=== PATIENT | female | born 1995 | race Caucasian/White ===

== ENCOUNTER 2018-06-06 11:47 | Emergency (ER) | payer OTHER ==
[~2018-06-06] VITALS: Ht 163.8 cm; Wt 112.0 kg
[~2018-06-06 11:47] MED LIST: AMPH12.52 PO; DIPH25CA83 PO; NITR100C6 PO; ONDA4TAB6 PO
[2018-06-06 11:52] VITALS: BP 133/90
[2018-06-06] MEDS ORDERED: penicillin V potassium 500mg tablet PO ONE (12:20)
[2018-06-06] MEDS ORDERED: PENI500T2 PO (12:21)
== END 2018-06-06 12:36 | disposition home or self-care (01) ==
LOC: ER 11:47
DX: J02.9 Acute pharyngitis, unspecified (principal); R51 Headache; Z91.02 Food additives allergy status
CPT/HCPCS: 99283

== ENCOUNTER 2018-10-18 19:28 | Emergency (ER) | payer OTHER ==
[~2018-10-18] VITALS: Ht 162.6 cm; Wt 112.7 kg
[2018-10-18 19:34] VITALS: BP 114/61
== END 2018-10-18 20:40 | disposition home or self-care (01) ==
LOC: ER 19:29
DX: R21 Rash and other nonspecific skin eruption (principal); L29.9 Pruritus, unspecified; L98.9 Disorder of the skin and subcutaneous tissue, unspecified; L53.8 Other specified erythematous conditions; Z91.018 Allergy to other foods; Z79.899 Other long term (current) drug therapy; Z98.890 Other specified postprocedural states
CPT/HCPCS: 99281

== ENCOUNTER 2019-09-06 12:13 | Emergency (ER) | payer MEDICAID, OTHER ==
[~2019-09-06] VITALS: Ht 162.6 cm; Wt 110.0 kg
[2019-09-06 12:14] VITALS: BP 130/77
[2019-09-06] MEDS ORDERED: ALBU8HFA PO (13:37)
== END 2019-09-06 13:41 | disposition home or self-care (01) ==
LOC: ER 12:13
DX: J06.9 Acute upper respiratory infection, unspecified (principal); Z98.890 Other specified postprocedural states; Z91.018 Allergy to other foods; Z79.899 Other long term (current) drug therapy
CPT/HCPCS: 99283

== ENCOUNTER 2020-04-17 10:23 | Emergency (ER) | payer BC, MEDICAID ==
[~2020-04-17] VITALS: Ht 162.6 cm; Wt 117.2 kg
[2020-04-17] MEDS ORDERED: CEPH250T PO (11:10)
[2020-04-17] MEDS ORDERED: cephalexin 500mg capsule PO ONE (11:20)
[2020-04-17 11:38] VITALS: BP 125/67
== END 2020-04-17 11:40 | disposition home or self-care (01) ==
LOC: ER 10:24
DX: N61.0 Mastitis without abscess (principal); Z98.890 Other specified postprocedural states; Z91.018 Allergy to other foods; Z79.2 Long term (current) use of antibiotics; Z79.899 Other long term (current) drug therapy
CPT/HCPCS: 99283

== ENCOUNTER 2020-11-09 20:01 | Emergency (ER) | payer OTHER ==
[~2020-11-09] VITALS: Ht 162.6 cm; Wt 108.9 kg
[~2020-11-09 20:01] MED LIST changes: +CEPH250T PO
[2020-11-09 20:24] VITALS: BP 133/70
== END 2020-11-09 21:56 | disposition home or self-care (01) ==
LOC: ER 20:01
DX: M25.562 Pain in left knee (principal); R60.0 Localized edema; Z79.2 Long term (current) use of antibiotics; Z79.899 Other long term (current) drug therapy; Z91.018 Allergy to other foods
CPT/HCPCS: 29105; 29505; 29515; 73564; 99283

== ENCOUNTER 2021-08-31 05:37 | Emergency (ER) | payer BC, OTHER ==
[~2021-08-31] VITALS: Ht 162.6 cm; Wt 105.5 kg
[~2021-08-31 05:37] MED LIST changes: -CEPH250T PO
[2021-08-31] MEDS ORDERED: methylPREDNISolone sod succ 125mg/2ml vial IV ONE (05:55)
[2021-08-31] MEDS ORDERED: FAMO20TA47 PO (06:39)
[2021-08-31] MEDS ORDERED: DIPH25CA83 PO (06:39)
[2021-08-31] MEDS ORDERED: PRED20TA PO (06:39)
[2021-08-31] MEDS ORDERED: predniSONE 20 mg tablet PO ONE (06:40)
[2021-08-31] MEDS ORDERED: famotidine 20mg tablet PO ONE (06:40)
--- NOTE | 2021-08-31 06:50 | NUR ---
Pt states she feels much better. no swelling noted in mouth. vital signs updated. pt awaiting discharge
[2021-08-31 07:25] VITALS: BP 130/77
--- NOTE | 2021-08-31 07:28 | NUR ---
Pt d/c prior to medications given. Pt stable, no apparent distress at this time.
== END 2021-08-31 07:26 | disposition home or self-care (01) ==
LOC: ER 05:38
DX: T78.1XXA Other adverse food reactions, not elsewhere classified, initial encounter (principal); R06.2 Wheezing; R05.9 Cough, unspecified; R06.02 Shortness of breath; Z98.891 History of uterine scar from previous surgery; Z91.018 Allergy to other foods; Z79.899 Other long term (current) drug therapy; X58.XXXA Exposure to other specified factors, initial encounter
CPT/HCPCS: 96374; 99283; J2930

== ENCOUNTER 2021-11-21 03:13 | Outpatient (CLI) | payer OTHER ==
[~2021-11-21 03:13] MED LIST changes: +FAMO20TA47 PO
== END 2021-11-21 23:59 | disposition home or self-care (01) ==
LOC: ER 03:13
DX: Z20.822 Contact with and (suspected) exposure to COVID-19 (principal)
CPT/HCPCS: 87635; C9803

== ENCOUNTER 2022-01-09 06:19 | Emergency (ER) | payer OTHER ==
[~2022-01-09] VITALS: Ht 162.6 cm; Wt 103.2 kg
[2022-01-09 06:24] VITALS: BP 129/74
[2022-01-09] MEDS ORDERED: ibuprofen tablet 400 MG TABLET PO ONE (07:40)
[2022-01-09] MEDS ORDERED: IBUP-1985 PO (07:41)
== END 2022-01-09 08:00 | disposition home or self-care (01) ==
LOC: ER 06:20
DX: T14.90XA Injury, unspecified, initial encounter (principal); Z91.018 Allergy to other foods; Z98.890 Other specified postprocedural states; X58.XXXA Exposure to other specified factors, initial encounter; Y93.89 Activity, other specified; Y92.89 Other specified places as the place of occurrence of the external cause; Y99.8 Other external cause status
CPT/HCPCS: 29125; 73130; 99283; L3908

== ENCOUNTER 2022-11-25 19:53 | Emergency (ER) | payer BC, MEDICAID ==
[~2022-11-25] VITALS: Ht 162.6 cm; Wt 99.1 kg
[~2022-11-25 19:53] MED LIST changes: +IBUP-1985 PO
[2022-11-25 21:09] LABS: BASOPHILS % (AUTO) 0.5 % (0-1); EOSINOPHILS # (AUTO) 0.1 X10'3 (0-0.9); EOSINOPHILS % (AUTO) 0.7 % (0-6); HEMOGLOBIN 12.8 g/dl (12.0-16.0); LYMPHOCYTES # (AUTO) 2.6 X10'3 (1.1-4.8); LYMPHOCYTES % (AUTO) 27.4 % (21-51); MEAN CORPUSCULAR HEMOGLOBIN 28.6 PG (27.0-31.0); MEAN CORPUSCULAR HGB CONC 32.7 g/dL (33.0-36.5); MEAN CORPUSCULAR VOLUME 87.4 FL (78-98); MEAN PLATELET VOLUME 7.4 FL (7.4-10.4); MONOCYTES # (AUTO) 1.1 X10'3 (0-0.9); MONOCYTES % (AUTO) 11.2 % (2-12); NEUTROPHILS # (AUTO) 5.8 X10'3 (1.8-7.7); NEUTROPHILS % (AUTO) 60.2 % (42-75); PLATELET COUNT 328 X10'3 (140-440); RED BLOOD COUNT 4.47 X10'6 (4.20-5.60); RED CELL DISTRIBUTION WIDTH 13.5 % (11.5-14.5); WHITE BLOOD COUNT 9.7 X10'3 (4.5-11.0)
[2022-11-25 21:31] LABS: ALANINE AMINOTRANSFERASE 28 U/L (12-78); ALBUMIN 3.5 G/DL (3.4-5.0); ALBUMIN/GLOBULIN RATIO 0.9 (1.1-1.5); ALKALINE PHOSPHATASE 61 IU/L (46-116); ANION GAP 7 (8-16); ASPARTATE AMINO TRANSFERASE 17 U/L (10-37); BILIRUBIN,TOTAL 0.1 MG/DL (0.1-1.0); BLOOD UREA NITROGEN 15 MG/DL (7-18); BUN/CREATININE RATIO 19.5 (10.0-20.0); CHLORIDE 105 MMOL/L (99-107); CREATININE 0.77 MG/DL (0.40-0.90); GLUCOSE 88 MG/DL (70-104); SODIUM 140 MMOL/L (135-145); TOTAL CARBON DIOXIDE 27.7 MMOL/L (24-32); TOTAL PROTEIN 7.3 G/DL (6.4-8.2); eGFR 89 ML/MIN
--- NOTE | 2022-11-25 23:28 | NUR ---
Dr Oleary aware of 2 negative troponins, stated third trop can be cancelled, so done.
[2022-11-26 01:18] VITALS: BP 132/82
== END 2022-11-26 01:19 | disposition home or self-care (01) ==
LOC: ER 19:54
DX: R42 Dizziness and giddiness (principal)
CPT/HCPCS: 36415; 71045; 80053; 83880; 84484; 85025; 93005; 99285

== ENCOUNTER 2022-12-27 15:53 | Inpatient (IN) | payer BC, MEDICAID ==
[~2022-12-27] VITALS: Ht 162.6 cm; Wt 98.0 kg
--- NOTE | 2022-12-27 17:37 | NUR ---
AMINAH RN ATTEMPTING IV AT THIS TIME. PT IS HARD STICK.
[2022-12-27 18:08] LABS: BASOPHILS % (AUTO) 0.2 % (0-1); EOSINOPHILS % (AUTO) 0.1 % (0-6); HEMATOCRIT 39.5 % (35.0-45.0); HEMOGLOBIN 12.8 g/dl (12.0-16.0); LYMPHOCYTES # (AUTO) 1.6 X10'3 (1.1-4.8); LYMPHOCYTES % (AUTO) 10.2 % (21-51); MEAN CORPUSCULAR HEMOGLOBIN 27.8 PG (27.0-31.0); MEAN CORPUSCULAR HGB CONC 32.3 g/dL (33.0-36.5); MEAN PLATELET VOLUME 7.6 FL (7.4-10.4); MONOCYTES # (AUTO) 0.6 X10'3 (0-0.9); MONOCYTES % (AUTO) 3.8 % (2-12); NEUTROPHILS % (AUTO) 85.7 % (42-75); PLATELET COUNT 348 X10'3 (140-440); RED BLOOD COUNT 4.59 X10'6 (4.20-5.60); RED CELL DISTRIBUTION WIDTH 12.7 % (11.5-14.5); WHITE BLOOD COUNT 15.2 X10'3 (4.5-11.0)
[2022-12-27 18:21] LABS: GLUCOSE 91 MG/DL (70-104)
[2022-12-27 18:22] LABS: ALANINE AMINOTRANSFERASE 18 U/L (12-78); ALBUMIN 3.8 G/DL (3.4-5.0); ALKALINE PHOSPHATASE 55 IU/L (46-116); ANION GAP 10 (8-16); ASPARTATE AMINO TRANSFERASE 17 U/L (10-37); BILIRUBIN,TOTAL 0.2 MG/DL (0.1-1.0); BLOOD UREA NITROGEN 16 MG/DL (7-18); BUN/CREATININE RATIO 21.3 (10.0-20.0); CHLORIDE 104 MMOL/L (99-107); CREATININE 0.75 MG/DL (0.40-0.90); POTASSIUM 3.7 MMOL/L (3.5-5.1); SODIUM 140 MMOL/L (135-145); TOTAL CARBON DIOXIDE 25.9 MMOL/L (24-32); TOTAL PROTEIN 7.7 G/DL (6.4-8.2); eGFR > 90 ML/MIN
--- NOTE | 2022-12-27 18:55 | NUR ---
Patient resting comfortably on [place], Dr. Shaikh is at bedside.
[2022-12-27] MEDS ORDERED: magnesium hydroxide 30ml (MOM) UD suspension PO PRN (19:35)
[2022-12-27] MEDS ORDERED: potassium Cl 20 mEq SR tablet PO PRN ×2 (19:35)
[2022-12-27] MEDS ORDERED: magnesium 4gm in 100ml NS 100 ML IV PRN (19:35)
[2022-12-27] MEDS ORDERED: potassium Cl 40MEQ/1/2NS 520ml 520 ML IV PRN (19:35)
[2022-12-27] MEDS ORDERED: mag hydrox/Alum hydrox/simeth 30ml oral suspension PO PRN (19:35)
[2022-12-27] MEDS ORDERED: magnesium Cl slow-release 64mg tablet PO PRN (19:35)
[2022-12-27] MEDS ORDERED: ondansetron/PF 4mg/2ml inj IV PRN (19:35)
[2022-12-27] MEDS ORDERED: acetaminophen 325mg tablet PO PRN (19:35)
[2022-12-27] MEDS ORDERED: magnesium 2GM in 50ml NS 50 ML IV PRN (19:35)
[2022-12-27] MEDS ORDERED: PERFLUTREN PROTEIN-A MICROSPHR (Optison) 0.22 MG/ML 3ML VIAL IV ONE (19:35)
[2022-12-27] MEDS: docusate sod 100mg capsule PO SCH (20:00)
[2022-12-27] MEDS: K and/or MAG REPLACEMENT MC SCH (20:00)
[2022-12-27] MEDS: heparin, porcine 5000 units/ml vial SQ SCH (20:00)
[2022-12-27] MEDS ORDERED: NO HOME MEDS (23:59)
[2022-12-28] MEDS: docusate sod 100mg capsule PO SCH ×2 (08:00→20:00)
[2022-12-28] MEDS: K and/or MAG REPLACEMENT MC SCH ×2 (08:00→20:00)
[2022-12-28] MEDS: heparin, porcine 5000 units/ml vial SQ SCH ×2 (08:00→20:00)
[2022-12-28 08:07] LABS: BASOPHILS # (AUTO) 0.1 X10'3 (0-0.2); BASOPHILS % (AUTO) 0.6 % (0-1); EOSINOPHILS # (AUTO) 0.1 X10'3 (0-0.9); EOSINOPHILS % (AUTO) 0.6 % (0-6); HEMATOCRIT 36.8 % (35.0-45.0); HEMOGLOBIN 12.1 g/dl (12.0-16.0); LYMPHOCYTES # (AUTO) 2.3 X10'3 (1.1-4.8); LYMPHOCYTES % (AUTO) 23.1 % (21-51); MEAN CORPUSCULAR HEMOGLOBIN 28.7 PG (27.0-31.0); MEAN CORPUSCULAR HGB CONC 32.9 g/dL (33.0-36.5); MEAN CORPUSCULAR VOLUME 87.2 FL (78-98); MEAN PLATELET VOLUME 7.8 FL (7.4-10.4); MONOCYTES # (AUTO) 0.8 X10'3 (0-0.9); MONOCYTES % (AUTO) 8.4 % (2-12); NEUTROPHILS # (AUTO) 6.8 X10'3 (1.8-7.7); NEUTROPHILS % (AUTO) 67.3 % (42-75); PLATELET COUNT 334 X10'3 (140-440); RED BLOOD COUNT 4.22 X10'6 (4.20-5.60); RED CELL DISTRIBUTION WIDTH 13.1 % (11.5-14.5)
[2022-12-28 08:24] LABS: ALANINE AMINOTRANSFERASE 15 U/L (12-78); ALBUMIN 3.1 G/DL (3.4-5.0); ALBUMIN/GLOBULIN RATIO 0.9 (1.1-1.5); ALKALINE PHOSPHATASE 44 IU/L (46-116); ANION GAP 10 (8-16); ASPARTATE AMINO TRANSFERASE 16 U/L (10-37); BILIRUBIN,TOTAL 0.1 MG/DL (0.1-1.0); BLOOD UREA NITROGEN 16 MG/DL (7-18); BUN/CREATININE RATIO 24.2 (10.0-20.0); CALCIUM 8.5 MG/DL (8.5-10.1); CHLORIDE 107 MMOL/L (99-107); CREATININE 0.66 MG/DL (0.40-0.90); GLUCOSE 91 MG/DL (70-104); MAGNESIUM 2.1 MG/DL (1.5-2.4); POTASSIUM 4.2 MMOL/L (3.5-5.1); SODIUM 141 MMOL/L (135-145); TOTAL CARBON DIOXIDE 23.7 MMOL/L (24-32); TOTAL PROTEIN 6.7 G/DL (6.4-8.2); eGFR > 90 ML/MIN
--- NOTE | 2022-12-28 08:35 | NUR ---
PT BACK FROM MRI.
--- NOTE | 2022-12-28 09:14 | NUR ---
BELT OPERATOR AT BEDSIDE.
[2022-12-28 10:15] LABS: CLARITY,URINE CLOUDY (Clear); COLOR,URINE YELLOW (Yellow); GLUCOSE, URINE NEGATIVE (Neg); KETONES,URINE NEGATIVE (Neg); LEUKOCYTE ESTERASE ,URINE NEGATIVE (Neg); NITRITES, URINE NEGATIVE (Neg); OCCULT BLOOD,URINE NEGATIVE (Neg); PROTEIN,URINE NEGATIVE (Neg); UROBILINOGEN,URINE 0.2 E.U/dL (0.2-1.0)
[2022-12-28 10:29] LABS: UA COLLECTION TYPE CLN CATCH MIDSTREAM
[2022-12-28 10:30] LABS: BACTERIA,URINE 2+ /HPF (Neg); RBC,URINE 0-2 /HPF (0-2); SQUAMOUS EPITHELIAL CELL,UR MANY /LPF (FEW); WBC,URINE 0-4 /HPF (0-4)
[2022-12-28 10:40] LABS: URINE AMPHETAMINE SCREEN NEGATIVE (Neg); URINE BARBITUATE SCREEN NEGATIVE (Neg); URINE BENZODIAZEPINES SCREEN NEGATIVE (Neg); URINE CANNABINOID SCREEN NEGATIVE (Neg); URINE COCAINE SCREEN NEGATIVE (Neg); URINE METHADONE SCREEN NEGATIVE (Neg); URINE OPIATE SCREEN NEGATIVE (Neg); URINE PHENCYCLIDINE SCREEN NEGATIVE (Neg)
--- NOTE | 2022-12-28 10:40 | NUR ---
ordered urine test as per dr dias's e orders under nursing orders " collect urine for ".
[2022-12-28 12:35] LABS: URINE HCG NEGATIVE (NEG)
[2022-12-28] MEDS: normal saline 1000ml 1,000 ML IV SCH ×2 (12:51→22:28)
[2022-12-28] MEDS ORDERED: iohexol 350MG/ML 100ml bottle IV ONE (12:56)
[2022-12-28 14:09] LABS: HEMOGLOBIN A1C 5.4 % (4.5-6.2)
[2022-12-28 14:13] LABS: CHOL/HDL RATIO 2.5 (0.00-4.99); CHOLESTEROL 130 MG/DL (0-200); HDL CHOLESTEROL 51 MG/DL (35-60); LDL CHOLESTEROL 69 MG/DL (50-100); TRIGLYCERIDES 28 MG/DL (20-135)
--- NOTE | 2022-12-28 17:18 | NUR ---
attempt to call report ,primary rn is busy passing med and will call the typewriter ribbon winder back .
--- NOTE | 2022-12-28 18:17 | NUR ---
offered patient her iv fluids per md orders, patient refused and told me that she is drinking enough and does not need the iv fluids, pt oral temp 99 and I offered her an IS and explained how the IS works she refused the IS, continue to educate and monitor patient
--- NOTE | 2022-12-28 18:29 | NUR ---
gave report rishabh mane
--- NOTE | 2022-12-28 18:30 | NUR ---
Patient in room ORTHO 4012. I have received report from Nena ARSHAD and had the opportunity to ask questions and assume patient care.
--- NOTE | 2022-12-28 20:00 | NUR ---
Noticed that patient was not hooked up to fluids. Went to reattach and pt stated "no, I dont want that as it will keep beeping every 10 minutes". I offered to start a new PIV in her hand instead of thr anti-cubital area and pt stated " no thanks, it took them 5 times down in the Er, and I have been drinking plenty. this is my 5 th pitcher of water I have had since being here in the ER". Advised patient that it would be easier to start an IV now as not so dehydrated, but patient stated "no, besides, I don't like needles". Patient promised to drink water this shift. Patient also declined colace stating "not needed", and also refused the heparin shot despite being educated on the reasons for it.
[2022-12-28 22:00] VITALS: BP_SYST 115; BP_SYST 125; BP_SYST 139; BP_DIAS 64; BP_DIAS 71; BP_DIAS 79
[2022-12-29 02:00] VITALS: BP 118/62
--- NOTE | 2022-12-29 05:30 | NUR ---
Went in room to dart patient , but patient sleeping soundly.
[2022-12-29 06:00] VITALS: BP 121/59
--- NOTE | 2022-12-29 06:40 | NUR ---
Problems reprioritized. Patient report given, questions answered & plan of care reviewed with Christina RN and Elizabeth Merrill.
[2022-12-29 06:44] LABS: BASOPHILS % (AUTO) 0.3 % (0-1); EOSINOPHILS # (AUTO) 0.1 X10'3 (0-0.9); HEMOGLOBIN 12.2 g/dl (12.0-16.0); LYMPHOCYTES # (AUTO) 2.4 X10'3 (1.1-4.8); LYMPHOCYTES % (AUTO) 28.6 % (21-51); MEAN CORPUSCULAR HEMOGLOBIN 28.3 PG (27.0-31.0); MEAN CORPUSCULAR HGB CONC 32.9 g/dL (33.0-36.5); MEAN CORPUSCULAR VOLUME 85.9 FL (78-98); MEAN PLATELET VOLUME 7.4 FL (7.4-10.4); MONOCYTES # (AUTO) 0.8 X10'3 (0-0.9); MONOCYTES % (AUTO) 9.2 % (2-12); NEUTROPHILS # (AUTO) 5.2 X10'3 (1.8-7.7); NEUTROPHILS % (AUTO) 60.9 % (42-75); PLATELET COUNT 345 X10'3 (140-440); RED BLOOD COUNT 4.31 X10'6 (4.20-5.60); RED CELL DISTRIBUTION WIDTH 12.7 % (11.5-14.5); WHITE BLOOD COUNT 8.5 X10'3 (4.5-11.0)
--- NOTE | 2022-12-29 06:52 | NUR ---
Patient in room ORTHO 4012. I have received report from Quiana and had the opportunity to ask questions and assume patient care.
[2022-12-29 06:56] LABS: ALANINE AMINOTRANSFERASE 15 U/L (12-78); ALBUMIN 3.2 G/DL (3.4-5.0); ALBUMIN/GLOBULIN RATIO 0.9 (1.1-1.5); ALKALINE PHOSPHATASE 45 IU/L (46-116); ANION GAP 7 (8-16); ASPARTATE AMINO TRANSFERASE 15 U/L (10-37); BILIRUBIN,TOTAL 0.2 MG/DL (0.1-1.0); BLOOD UREA NITROGEN 20 MG/DL (7-18); CALCIUM 8.5 MG/DL (8.5-10.1); CHLORIDE 105 MMOL/L (99-107); CREATININE 0.69 MG/DL (0.40-0.90); GLUCOSE 91 MG/DL (70-104); MAGNESIUM 1.8 MG/DL (1.5-2.4); POTASSIUM 4.1 MMOL/L (3.5-5.1); SODIUM 138 MMOL/L (135-145); TOTAL PROTEIN 6.8 G/DL (6.4-8.2); eGFR > 90 ML/MIN
[2022-12-29] MEDS: K and/or MAG REPLACEMENT MC SCH (07:44)
[2022-12-29 08:00] VITALS: BP_SYST 115; BP_SYST 116; BP_DIAS 59; BP_DIAS 75
[2022-12-29] MEDS: heparin, porcine 5000 units/ml vial SQ SCH (08:00)
[2022-12-29] MEDS: docusate sod 100mg capsule PO SCH (08:00)
[2022-12-29] MEDS: normal saline 1000ml 1,000 ML IV SCH (08:45)
[2022-12-29 10:00] VITALS: BP 117/66
--- NOTE | 2022-12-29 11:51 | NUR ---
Orientee documentation: I have reviewed and agree with all interventions, assessments performed and documented by Dannielle ARSHAD
--- NOTE | 2022-12-29 12:51 | NUR ---
Reviewed discharge and follow up instructions with patient and family at bedside. Patient verbalized understanding. Patient is alert, oriented and does not have any complaints at this time. Patient showered, dressed herself and walked downstairs accompanied by her friends/family.
== END 2022-12-29 13:20 | disposition home or self-care (01) | DRG 312 ==
LOC: EEVIPCON 15:53 → ER 15:53 → EEVIPCON 19:32 → ED HOLD 19:32 → ORTHO 4S 12-28 17:49
PROVIDERS: ADMIT Internal Medicine; ATTEND Family Medicine
PROC: 4A00X4Z Measurement of Central Nervous Electrical Activity, External Approach (ICD-10-PCS; principal; 2022-12-28)
PROC: B3251ZZ Computerized Tomography (CT Scan) of Bilateral Common Carotid Arteries using Low Osmolar Contrast (ICD-10-PCS; 2022-12-28)
PROC: B32G1ZZ Computerized Tomography (CT Scan) of Bilateral Vertebral Arteries using Low Osmolar Contrast (ICD-10-PCS; 2022-12-28)
PROC: B32R1ZZ Computerized Tomography (CT Scan) of Intracranial Arteries using Low Osmolar Contrast (ICD-10-PCS; 2022-12-28)
PROC: B3281ZZ Computerized Tomography (CT Scan) of Bilateral Internal Carotid Arteries using Low Osmolar Contrast (ICD-10-PCS; 2022-12-28)
DX: R55 Syncope and collapse (principal); Z98.891 History of uterine scar from previous surgery; Z88.8 Allergy status to other drugs, medicaments and biological substances; Z91.018 Allergy to other foods; Z79.899 Other long term (current) drug therapy
CPT/HCPCS: 36415; 70450; 70496; 70498; 70551; 71045; 80053; 80061; 80305; 81001; 81025; 83036; 83735; 83880; 84145; 84443; 85025; 87081; 93306; 95816; 99285; G0378; J7030; Q9967

== ENCOUNTER 2023-05-05 14:09 | Emergency (ER) | payer BC, MEDICAID ==
[~2023-05-05] VITALS: Ht 162.6 cm; Wt 104.5 kg
[2023-05-05 14:17] VITALS: BP 126/82; PULSE 89; TEMP 99; O2SAT 98
[2023-05-05 14:29] VITALS: RESP 18
--- NOTE | 2023-05-05 16:25 | NUR ---
EDI PROGRAMMER ANALYST GENERAL ASSESSMENT REVIEWED BY CHG RN AFTER PT WAS DC. PROVIDER EVALUATED, TX AND DC PT.
== END 2023-05-05 15:00 | disposition home or self-care (01) ==
LOC: ER 14:10
DX: S93.401A Sprain of unspecified ligament of right ankle, initial encounter (principal); Z91.018 Allergy to other foods; Z98.890 Other specified postprocedural states; X58.XXXA Exposure to other specified factors, initial encounter; Y93.89 Activity, other specified; Y92.89 Other specified places as the place of occurrence of the external cause; Y99.8 Other external cause status
CPT/HCPCS: 29515; 73610; 99284

== ENCOUNTER 2023-09-03 15:42 | Emergency (ER) | payer BC, MEDICAID ==
[~2023-09-03] VITALS: Ht 162.6 cm; Wt 117.1 kg
[2023-09-03 15:57] VITALS: BP 138/86; TEMP 98
[2023-09-03 16:42] LABS: BASOPHILS % (AUTO) 0.5 % (0-1); EOSINOPHILS # (AUTO) 0.1 X10'3 (0-0.9); EOSINOPHILS % (AUTO) 1.3 % (0-6); HEMATOCRIT 41.5 % (35.0-45.0); HEMOGLOBIN 13.7 g/dl (12.0-16.0); LYMPHOCYTES # (AUTO) 2.3 X10'3 (1.1-4.8); LYMPHOCYTES % (AUTO) 23.6 % (21-51); MEAN CORPUSCULAR HEMOGLOBIN 28.3 PG (27.0-31.0); MEAN CORPUSCULAR VOLUME 85.8 FL (78-98); MEAN PLATELET VOLUME 7.2 FL (7.4-10.4); MONOCYTES # (AUTO) 0.8 X10'3 (0-0.9); MONOCYTES % (AUTO) 8.6 % (2-12); NEUTROPHILS # (AUTO) 6.3 X10'3 (1.8-7.7); PLATELET COUNT 389 X10'3 (140-440); RED BLOOD COUNT 4.84 X10'6 (4.20-5.60); RED CELL DISTRIBUTION WIDTH 13.2 % (11.5-14.5); WHITE BLOOD COUNT 9.6 X10'3 (4.5-11.0)
[2023-09-03 17:03] LABS: ALBUMIN 3.6 G/DL (3.4-5.0); ANION GAP 8 (8-16); BLOOD UREA NITROGEN 14 MG/DL (7-18); BUN/CREATININE RATIO 17.1 (10.0-20.0); CALCIUM 8.8 MG/DL (8.5-10.1); CHLORIDE 107 MMOL/L (99-107); CREATININE 0.82 MG/DL (0.40-0.90); GLUCOSE 78 MG/DL (70-104); POTASSIUM 4.1 MMOL/L (3.5-5.1); PRO BRAIN NATRIURETIC PEPTIDE 42 PG/ML (0-125); SODIUM 142 MMOL/L (135-145); TOTAL CARBON DIOXIDE 27.2 MMOL/L (24-32); eCRCL 87 ML/MIN; eGFR 82 ML/MIN
[2023-09-03 20:31] VITALS: PULSE 68; RESP 16; O2SAT 98
== END 2023-09-03 20:33 | disposition home or self-care (01) ==
LOC: ER 15:43
DX: R53.1 Weakness (principal); Z98.890 Other specified postprocedural states; Z72.89 Other problems related to lifestyle
CPT/HCPCS: 36415; 71045; 80048; 83880; 85025; 93005; 99285

== ENCOUNTER 2023-11-25 09:09 | Emergency (ER) | payer BC, MEDICAID ==
[~2023-11-25] VITALS: Ht 162.6 cm; Wt 115.9 kg
[2023-11-25 09:35] VITALS: TEMP 98
[2023-11-25 09:53] VITALS: BP 152/99; PULSE 71; RESP 19; O2SAT 99
[2023-11-25 10:46] LABS: BASOPHILS % (AUTO) 0.2 % (0-1); EOSINOPHILS # (AUTO) 0.1 X10'3 (0-0.9); EOSINOPHILS % (AUTO) 1.6 % (0-6); HEMATOCRIT 37.7 % (35.0-45.0); HEMOGLOBIN 12.4 g/dl (12.0-16.0); LYMPHOCYTES # (AUTO) 1.7 X10'3 (1.1-4.8); LYMPHOCYTES % (AUTO) 21.6 % (21-51); MEAN CORPUSCULAR HEMOGLOBIN 28.2 PG (27.0-31.0); MEAN CORPUSCULAR HGB CONC 32.8 g/dL (33.0-36.5); MEAN CORPUSCULAR VOLUME 85.9 FL (78-98); MONOCYTES # (AUTO) 0.5 X10'3 (0-0.9); MONOCYTES % (AUTO) 6.1 % (2-12); NEUTROPHILS # (AUTO) 5.6 X10'3 (1.8-7.7); NEUTROPHILS % (AUTO) 70.5 % (42-75); PLATELET COUNT 340 X10'3 (140-440); RED BLOOD COUNT 4.39 X10'6 (4.20-5.60); WHITE BLOOD COUNT 7.9 X10'3 (4.5-11.0)
[2023-11-25 11:00] LABS: ALANINE AMINOTRANSFERASE 33 U/L (12-78); ALBUMIN 3.4 G/DL (3.4-5.0); ALBUMIN/GLOBULIN RATIO 0.8 (1.1-1.5); ALKALINE PHOSPHATASE 66 IU/L (46-116); ANION GAP 7 (8-16); ASPARTATE AMINO TRANSFERASE 14 U/L (10-37); BILIRUBIN,TOTAL 0.3 MG/DL (0.1-1.0); BLOOD UREA NITROGEN 12 MG/DL (7-18); BUN/CREATININE RATIO 13.5 (10.0-20.0); CALCIUM 8.7 MG/DL (8.5-10.1); CHLORIDE 105 MMOL/L (99-107); CREATININE 0.89 MG/DL (0.40-0.90); GLUCOSE 77 MG/DL (70-104); POTASSIUM 3.9 MMOL/L (3.5-5.1); SODIUM 139 MMOL/L (135-145); TOTAL CARBON DIOXIDE 27.1 MMOL/L (24-32); TOTAL PROTEIN 7.8 G/DL (6.4-8.2); eCRCL 80 ML/MIN; eGFR 74 ML/MIN
[2023-11-25 11:11] LABS: PRO BRAIN NATRIURETIC PEPTIDE 87 PG/ML (0-125)
== END 2023-11-25 11:43 | disposition home or self-care (01) ==
LOC: ER 09:10
DX: G90.A Postural orthostatic tachycardia syndrome [POTS] (principal); I73.00 Raynaud's syndrome without gangrene; Z98.890 Other specified postprocedural states; Z88.8 Allergy status to other drugs, medicaments and biological substances
CPT/HCPCS: 36415; 71045; 80053; 83880; 84484; 85025; 93005; 99285

== ENCOUNTER 2023-11-27 11:41 | Emergency (ER) | payer BC ==
[~2023-11-27] VITALS: Ht 162.6 cm; Wt 111.2 kg
[2023-11-27 11:47] VITALS: TEMP 98.6
[2023-11-27] MEDS: epiNEPHrine 1 mg/ml inj SQ ONE (12:00)
[2023-11-27] MEDS: dexamethasone 4mg/ml inj IV ONE (12:07)
[2023-11-27] MEDS: famotidine/PF 10 mg/ml inj IV ONE (12:07)
[2023-11-27] MEDS: normal saline 1000ML IV soln IVB STA (12:20)
[2023-11-27 12:36] VITALS: O2SAT 96
[2023-11-27 13:11] VITALS: BP 105/60; PULSE 77; RESP 15
[2023-11-27] MEDS ORDERED: EPIN0.3P3 IM (13:19)
== END 2023-11-27 14:02 | disposition home or self-care (01) ==
LOC: ER 11:42
DX: T78.1XXA Other adverse food reactions, not elsewhere classified, initial encounter (principal); X58.XXXA Exposure to other specified factors, initial encounter; Z91.018 Allergy to other foods; Z79.899 Other long term (current) drug therapy; Z98.890 Other specified postprocedural states
CPT/HCPCS: 96374; 96375; 99284; J1100; J3490

== ENCOUNTER 2024-01-27 10:57 | Emergency (ER) | payer OTHER ==
[~2024-01-27] VITALS: Ht 162.6 cm; Wt 116.2 kg
[~2024-01-27 10:57] MED LIST changes: -AMPH12.52 PO; -DIPH25CA83 PO; +EPIN0.3P3 IM; -FAMO20TA47 PO; -IBUP-1985 PO; -NITR100C6 PO; -ONDA4TAB6 PO
[2024-01-27] MEDS ORDERED: IBUP-1986 PO (11:46)
[2024-01-27] MEDS ORDERED: CYCL-1 PO (11:46)
[2024-01-27] MEDS: LIDOcaine 5% patch TP STA (12:06)
[2024-01-27] MEDS: ketorolac trometh 15mg/ml vial 15 MG/ML ML IM ONE (12:06)
[2024-01-27 12:10] VITALS: BP 134/72; PULSE 78; RESP 18; TEMP 98.3; O2SAT 99
== END 2024-01-27 12:12 | disposition home or self-care (01) ==
LOC: ER 10:57
DX: M54.50 Low back pain, unspecified (principal); Z91.018 Allergy to other foods; Z79.899 Other long term (current) drug therapy; Z79.2 Long term (current) use of antibiotics; Z98.890 Other specified postprocedural states
CPT/HCPCS: 96372; 99283; J1885

== ENCOUNTER 2024-03-26 15:13 | Emergency (ER) | payer OTHER ==
[~2024-03-26] VITALS: Ht 162.6 cm; Wt 109.1 kg
[~2024-03-26 15:13] MED LIST changes: +CYCL-1 PO; +IBUP-1986 PO
[2024-03-26 15:28] VITALS: BP 139/76; PULSE 76; RESP 18; TEMP 98; O2SAT 98
== END 2024-03-26 16:40 | disposition home or self-care (01) ==
LOC: ER 15:13
DX: S63.501A Unspecified sprain of right wrist, initial encounter (principal); Z91.018 Allergy to other foods; Z79.899 Other long term (current) drug therapy; Z98.890 Other specified postprocedural states; X58.XXXA Exposure to other specified factors, initial encounter; Y93.89 Activity, other specified; Y92.89 Other specified places as the place of occurrence of the external cause; Y99.8 Other external cause status
CPT/HCPCS: 29125; 73110; 99283

== ENCOUNTER 2024-11-28 10:47 | Emergency (ER) | payer BC, OTHER ==
[~2024-11-28] VITALS: Ht 162.6 cm; Wt 113.6 kg
[2024-11-28 10:51] VITALS: BP 142/98; PULSE 71; O2SAT 99
--- NOTE | 2024-11-28 11:06 | Physician Documentation ---
History of Present Illness ~ General Chief Complaint: Multiple Medical Complaints Stated Complaint: MULTIPLE MED COMPLAINTS Time Seen by MD: 11:19 Primary Medical Doctor: LATOYA History of Present Illness Initial Comments 29-YEAR-OLD FEMALE PRESENTS WITH A COMPLAINT OF 2-3 WEEKS OF MIGRAINE ALONG WITH CHEST PAIN AND SHORTNESS OF BREATH. 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 Medication Reconciliation Allergies: Coded Allergies: pineapple (Verified Allergy, Unknown, 03/26/24) soy (Verified Allergy, Unknown, 03/26/24) Uncoded Allergies: ZUCCHINI (Allergy, Severe, THROAT FEELS LIKE CLOSING UP, 01/17/14) Scheduled Cyclobenzaprine* (Cyclobenzaprine*), 1 TAB PO HS Epinephrine (Epipen 2-Andrea), 1 SYR IM ONCE Ibuprofen (Ibuprofen), 1 TAB PO Q8H Past Medical History Past Medical History: No Pertinent History Past Surgical History: Patient History: FH: CHF (congestive heart failure) GRANDFATHER OR GRANDMOTHER FH: breast cancer FH: prostate cancer GRANDFATHER OR GRANDMOTHER Alcohol Use: Rarely Drug Use: none Lives with: Family Lives In: Home Occupation: employed Physical Exam Physical Exam Vital Signs: Temperature: 98.2, Source: Temporal, Heart Rate: 71, Respiratory Rate: 18, BP: 142/98, Pulse Oximetry: 99, Weight: 113.640 Oxygen Flow Rate: 0 Progress Results/Orders Results/Orders Orders - JOHNSON MENON CLEANER AND PREPARER Cult Urine + [place] [address] (11/28/24 12:57) Vl Arterial (11/28/24 ) Vl Arterial (11/28/24 ) Completed Orders - JOHNSON MENON CLEANER AND PREPARER Hcg, Ur Ql (11/28/24 10:55) Cbc/Diff (11/28/24 10:55) BMP (11/28/24 10:55) Lipase (11/28/24 10:55) CMP (11/28/24 10:55) Electrocardiogram (11/28/24 11:27) Ketorolac Trometh 30mg/Ml Vial (Toradol (11/28/24 12:00) Ua W/Microscopic, Cult If Ind (11/28/24 11:08) Vl Arterial (11/28/24 ) Vl Arterial (11/28/24 ) Medications Received in ER Medications (Trade) Dose Ordered Sig/Antoinette Route PRN Reason Start Time Stop Time Status Last Admin Dose Admin (Toradol inj. 30mg/ml) 30 mg ONCE ONCE IM 11/28/24 12:00 11/28/24 12:01 DC 11/28/24 12:33 30 MG Vital Signs 11/28/24 11/28/24 11/28/24 11/28/24 10:51 11:21 12:33 14:25 Temp 98.2 98.2 Pulse 71 Resp 18 17 16 B/P (MAP) 142/98 Pulse Ox 99 O2 Flow Rate 0 Laboratory Tests Test 11/28/24 11:08 11/28/24 11:09 Urine Specimen Description Cln catch midstream Urine Color Yellow Urine Clarity Clear Urine pH 6.0 Urine Specific [place] <=1.005 Urine Protein Negative Urine Glucose (UA) Negative Urine Ketones Negative Urine Occult Blood Negative Urine Nitrite Negative Urine Bilirubin Negative Urine Urobilinogen 0.2 Urine Leukocyte Esterase Small H Urine RBC 0-2 Urine WBC 5-10 H Urine Squamous Epithelial Cells Moderate Urine Transitional Epithelial Cells Few Urine Renal Cells Few Urine Bacteria Few Urine Mucus None seen Urine Culture Indicated Indicated Volume Urine Centrifuged 10 ml Urine HCG, Qualitative Negative Urine Comment White Blood Count 8.8 Red Blood Count 4.45 Hemoglobin 12.4 Hematocrit 36.9 Mean Corpuscular Volume 83.0 Mean Corpuscular Hemoglobin 27.8 Mean Corpuscular Hemoglobin Concent 33.5 Red Cell Distribution Width 13.9 Platelet Count 371 Mean Platelet Volume 7.4 Neutrophils (%) (Auto) 70.6 Lymphocytes (%) (Auto) 21.3 Monocytes (%) (Auto) 6.8 Eosinophils (%) (Auto) 1.0 Basophils (%) (Auto) 0.3 Neutrophils # (Auto) 6.2 Lymphocytes # (Auto) 1.9 Monocytes # (Auto) 0.6 Eosinophils # (Auto) 0.1 Basophils # (Auto) 0.0 CBC Comment Sodium Level 143 Potassium Level 3.8 Chloride Level 107 Carbon Dioxide Level 24.0 Anion Gap 12 Blood Urea Nitrogen 11 Creatinine 0.70 Estimated GFR/1.73 m2 > 90 BUN/Creatinine Ratio 15.7 Glucose Level 92 Calcium Level 9.0 Total Bilirubin 0.2 Aspartate Amino Transf (AST/SGOT) 30 Alanine Aminotransferase (ALT/SGPT) 33 Alkaline Phosphatase 83 Total Protein 7.8 Albumin 3.4 Globulin 4.4 H Albumin/Globulin Ratio 0.8 L Lipase 25 Chemistry Comments Microbiology Date/Time Source Procedure Growth Status 11/28/24 12:57 Urine Clean Catch Midstream Urine Culture - Preliminary Culture received. Resulted Medical Decision Making Findings After full evaluation I did not see any evidence that would be attributing to patient's symptoms. Did give her a Toradol shot for migraine. Did rule out a blood clot in her left lower extremity I suspect stress anxiety the larger issues. I verbalized this the patient and advised her to follow up in the outpatient setting. Her urinalysis appears to be a poor sample based on the elevated squamous cells Departure Disposition: HOME / SELF CARE / HOMELESS Impression: Primary Impression: Anxiety about health Condition: Stable Referrals: NO PRIMARY CARE PROVIDER (PCP) Signature Scribe Signature: f Attestation: Scribed for Johnson Menon Educational Therapist by Johnson Menon - MIKAYLA . 11/28/24 18:29 JOHNSON MENON NP Nov 28, 2024 11:06
[2024-11-28 11:19] LABS: BASOPHILS % (AUTO) 0.3 % (0-1); EOSINOPHILS # (AUTO) 0.1 X10'3 (0-0.9); HEMATOCRIT 36.9 % (35.0-45.0); HEMOGLOBIN 12.4 g/dl (12.0-16.0); LYMPHOCYTES # (AUTO) 1.9 X10'3 (1.1-4.8); LYMPHOCYTES % (AUTO) 21.3 % (21-51); MEAN CORPUSCULAR HEMOGLOBIN 27.8 PG (27.0-31.0); MEAN CORPUSCULAR HGB CONC 33.5 g/dL (33.0-36.5); MEAN PLATELET VOLUME 7.4 FL (7.4-10.4); MONOCYTES # (AUTO) 0.6 X10'3 (0-0.9); MONOCYTES % (AUTO) 6.8 % (2-12); NEUTROPHILS # (AUTO) 6.2 X10'3 (1.8-7.7); NEUTROPHILS % (AUTO) 70.6 % (42-75); PLATELET COUNT 371 X10'3 (140-440); RED BLOOD COUNT 4.45 X10'6 (4.20-5.60); RED CELL DISTRIBUTION WIDTH 13.9 % (11.5-14.5); WHITE BLOOD COUNT 8.8 X10'3 (4.5-11.0)
--- NOTE | 2024-11-28 11:33 | ELECTROCARDIOGRAPH REPORT ---
[facility] Test Date: 2024-11-28 Test Time: 11:31:12 Pat Name: SHANA REYES Department: EMERGENCY ROOM Room: Gender: F Opal Miner: LUBA : 1995 Requested By: JOHNSON MENON Order Number: [id number] Reading MD: Measurements Intervals [place] Rate: 60 P: 42 IN: 136 QRS: 33 QRSD: 88 T: 38 QT: 398 QTc: 398 Interpretive Statements Sinus rhythm Please click the below link to view image of tracing.
[2024-11-28 11:39] LABS: ALANINE AMINOTRANSFERASE 33 U/L (12-78); ALBUMIN 3.4 G/DL (3.4-5.0); ALBUMIN/GLOBULIN RATIO 0.8 (1.1-1.5); ALKALINE PHOSPHATASE 83 IU/L (46-116); ANION GAP 12 (8-16); ASPARTATE AMINO TRANSFERASE 30 U/L (10-37); BILIRUBIN,TOTAL 0.2 MG/DL (0.1-1.0); BLOOD UREA NITROGEN 11 MG/DL (7-18); BUN/CREATININE RATIO 15.7 (10.0-20.0); CHLORIDE 107 MMOL/L (99-107); GLUCOSE 92 MG/DL (70-104); LIPASE 25 U/L (16-77); POTASSIUM 3.8 MMOL/L (3.5-5.1); SODIUM 143 MMOL/L (135-145); TOTAL PROTEIN 7.8 G/DL (6.4-8.2); eCRCL 101 ML/MIN; eGFR > 90 ML/MIN
[2024-11-28 12:33] VITALS: RESP 16
[2024-11-28] MEDS: ketorolac trometh 30MG/ML vial 30 MG/ML VIAL IM ONE (12:33)
[2024-11-28 12:44] LABS: BILIRUBIN,URINE NEGATIVE (Neg); CLARITY,URINE CLEAR (Clear); COLOR,URINE YELLOW (Yellow); GLUCOSE, URINE NEGATIVE (Neg); KETONES,URINE NEGATIVE (Neg); LEUKOCYTE ESTERASE ,URINE SMALL (Neg); NITRITES, URINE NEGATIVE (Neg); OCCULT BLOOD,URINE NEGATIVE (Neg); PROTEIN,URINE NEGATIVE (Neg); UROBILINOGEN,URINE 0.2 E.U/dL (0.2-1.0)
[2024-11-28 12:50] LABS: URINE HCG NEGATIVE (NEG)
[2024-11-28 12:51] LABS: UA COLLECTION TYPE CLN CATCH MIDSTREAM
[2024-11-28 12:55] LABS: BACTERIA,URINE FEW /HPF (Neg); RBC,URINE 0-2 /HPF (0-2)
[2024-11-28 12:56] LABS: MUCUS STRANDS NONE SEEN /LPF (Neg); RENAL CELLS, URINE FEW /HPF; SQUAMOUS EPITHELIAL CELL,UR MODERATE /LPF (FEW); TRANSITIONAL EPI CELLS,URINE FEW /HPF
[2024-11-28 14:25] VITALS: TEMP 98.2
--- NOTE | 2024-11-28 14:43 | VASCULAR REPORT ---
Left Lower Extremity Arterial Duplex Clinical History: Pain Comparison: None Technique: Duplex Doppler evaluation including color Doppler and spectral/pulsed waveform analysis of the lower extremity arteries was performed. Findings: LEFT: Peak systolic velocities are as follows: UNIT NURSE 140 cm/s Deep femoral 88 cm/s SFA proximal 117 cm/s SFA mid-portion 95 cm/s SFA distal 75 cm/s Popliteal 54 cm/s Posterior tibial 57 cm/s Anterior tibial 46 cm/s Peroneal nv cm/s Dorsalis pedis 46 cm/s The waveforms are multiphasic. IMPRESSION: No hemodynamically significant stenosis based on peak systolic velocity criteria. REFERENCE VALUES, [facility] ([facility]) vascular Imaging Lab Criteria: Peak systolic velocity rang es (in cm/sec) are as follows: <150 cm/s - <20 % stenosis 150-200 cm/s - 20-49% stenosis 200-300 cm/s - 50-75% stenosis >300 cm/s -> 75% stenosis
== END 2024-11-28 14:29 | disposition home or self-care (01) ==
LOC: ER 10:47
DX: F41.9 Anxiety disorder, unspecified (principal); G43.909 Migraine, unspecified, not intractable, without status migrainosus; Z91.018 Allergy to other foods; Z79.899 Other long term (current) drug therapy
CPT/HCPCS: 36415; 80053; 81001; 81025; 83690; 85025; 87088; 93005; 93926; 96372; 99285; J1885